=== PATIENT | female | born 1975 | race Caucasian/White ===

== ENCOUNTER 2021-09-19 11:12 | Emergency (ER) | payer BC ==
--- NOTE | 2021-09-19 11:50 | EDM.PDOC ---
ED HPI GENERAL MEDICAL PROBLEM - General Chief Complaint: General Stated Complaint: ?covid Time Seen by Provider: 09/19/21 11:40 Source of Information: Reports: Patient History Limitations: Reports: No Limitations - History of Present Illness INITIAL COMMENTS - FREE TEXT/NARRATIVE: Mrs. Brown is a 46 year old female that presents to the ED with flu-like symptoms. Began feeling SOB with cough today. States she has 2 family members that recently tested positive for influenza A. She has also had increased blood pressures for the past few weeks. Was started on 10 mg lisinopril last Wednesday. Reports generalized body aches. Denies fever. Onset: Today - Related Data Allergies Allergy/AdvReac Type Severity Reaction Status Date / Time acetaminophen Allergy Cannot Verified 01/09/17 13:12 [From Darvocet-N] Remember hydromorphone [From Dilaudid] Allergy Nausea Verified 01/09/17 13:12 morphine Allergy Nausea Verified 01/09/17 13:12 naproxen [From Naprosyn] Allergy Cannot Verified 01/09/17 13:12 Remember propoxyphene napsylate Allergy Cannot Verified 01/09/17 13:12 [From Darvocet-N] Remember Home Meds: Home Meds Omeprazole [Prilosec] 1 cap PO DAILY 08/15/14 [History] Oxymetazoline HCl [Afrin] 2 spray MAK BID PRN 08/15/14 [History] carBAMazepine [TEGretol] 400 mg PO BEDTIME 08/15/14 [History] ondansetron HCL [Zofran] 1 tab PO Q8H PRN 12/13/15 [History] Oseltamivir [Tamiflu] 75 mg PO DAILY #10 cap 09/19/21 [Rx] ED ROS GENERAL - Review of Systems Review Of Systems: Comprehensive ROS is negative, except as noted in HPI. ED EXAM, GENERAL - Physical Exam Exam: See Below Exam Limited By: No Limitations General Appearance: Alert, WD/WN, No Apparent Distress Ears: Normal External Exam Nose: Normal Inspection Throat/Mouth: Normal Voice, No Airway Compromise Head: Atraumatic, Normocephalic Neck: Normal Inspection, Supple, Non-Tender Respiratory/Chest: No Respiratory Distress, Lungs Clear, No Accessory Muscle Use Cardiovascular: Regular Rate, Rhythm, No Gallop, No Murmur, No Rub (Female) Exam: Deferred Rectal (Female) Exam: Deferred Neurological: Alert, Oriented, Normal Cognition Psychiatric: Normal Affect, Normal Mood Skin Exam: Warm, Dry, Intact Lymphatic: No Adenopathy Course - Orders/Labs/Meds Orders: Active Orders 24 hr Category Date Time Status Isolation [COMM] Routine Oth 09/19/21 11:14 Active Labs: Laboratory Tests 09/19/21 Range/Units 11:21 SARS CoV-2 RNA Rapid KASEY Negative (NEGATIVE) Departure - Departure Time of Disposition: 11:44 Disposition: Home, Self-Care 01 Clinical Impression: Viral respiratory illness Hypertension Qualifiers: Hypertension type: primary hypertension Qualified Code(s): I10 - Essential (primary) hypertension - Discharge Information *PRESCRIPTION DRUG MONITORING PROGRAM REVIEWED*: Not Applicable *COPY OF PRESCRIPTION DRUG MONITORING REPORT IN PATIENT EMILY: Not Applicable Instructions: Viral Illness, Adult Additional Instructions: 1. Take Tamiflu as prescribed for prophylactically for exposure to influenza. 2. Increase lisinopril to 20 mg. Monitor and document your blood pressures. 3. Follow-up with primary care provider in about 10 days with blood pressure readings to evaluate effectiveness. 4. Return if symptoms worsen or for any questions or concerns. - My Orders Last 24 Hours: My Active Orders 09/19/21 11:14 Isolation [COMM] Routine - Assessment/Plan Last 24 Hours: My Active Orders 09/19/21 11:14 Isolation [COMM] Routine
[2021-09-19 12:43] VITALS: BP 181/107; PULSE 112
== END 2021-09-19 12:15 | disposition home or self-care (01) ==
LOC: CC.ED 11:12
DX: B34.9 Viral infection, unspecified (principal); I10 Essential (primary) hypertension; Z88.5 Allergy status to narcotic agent; Z88.8 Allergy status to other drugs, medicaments and biological substances; Z79.899 Other long term (current) drug therapy; Z20.822 Contact with and (suspected) exposure to COVID-19
CPT/HCPCS: 87804; 99283; U0002

== ENCOUNTER → 2022-12-09 | Day surgery (SDC) | payer BC ==
[~2022-12-09] MED LIST: Lidocaine 1% w/EPINEPHrine 100 ML, Sodium Chloride 0.9% 900 ML, Sodium Bicarbonate 10 MEQ INJECT ONE
[2022-12-09 14:13] VITALS: BP 147/88; PULSE 82
[2022-12-09] MEDS: Lidocaine 1% 30 ML SDV INJECT ONE ×2 (14:28→15:00)
[2022-12-09] MEDS: Lidocaine 1% 5 ML VIAL INJECT ONE ×2 (14:28→15:00)
== END ==
LOC: CC.SDS 13:38
PROVIDERS: ATTEND Family Medicine
DX: I83.813 Varicose veins of bilateral lower extremities with pain (principal); I87.2 Venous insufficiency (chronic) (peripheral); F41.9 Anxiety disorder, unspecified; K21.9 Gastro-esophageal reflux disease without esophagitis; E78.5 Hyperlipidemia, unspecified; I10 Essential (primary) hypertension; M17.0 Bilateral primary osteoarthritis of knee; Z88.5 Allergy status to narcotic agent; Z88.8 Allergy status to other drugs, medicaments and biological substances; Z79.899 Other long term (current) drug therapy
CPT/HCPCS: A4216; J3490; J7030

== ENCOUNTER → 2023-06-11 | Day surgery (SDC) | payer BC ==
[~2023-06-11] MED LIST changes: +Ketamine 200 MG/20 ML MDV ONE; +Lactated Ringers 1,000 ML IV SCH; -Lidocaine 1% w/EPINEPHrine 100 ML, Sodium Chloride 0.9% 900 ML, Sodium Bicarbonate 10 MEQ INJECT ONE; +Lidocaine 2% 20 ML MDV ONE; +Propofol 200 MG/20 ML SDV ONE; +fentaNYL 50 MCG/ML SDV ONE
[2023-06-11 12:42] VITALS: BP 121/78; PULSE 80
== END ==
LOC: CC.SDS 09:05
PROVIDERS: ATTEND Family Medicine
DX: K21.9 Gastro-esophageal reflux disease without esophagitis (principal); K29.50 Unspecified chronic gastritis without bleeding; K52.9 Noninfective gastroenteritis and colitis, unspecified; Z88.5 Allergy status to narcotic agent; Z88.8 Allergy status to other drugs, medicaments and biological substances
CPT/HCPCS: 00813; 87081; J2704; J3010; J3490; J7120

== ENCOUNTER 2025-03-17 10:53 | Emergency (ER) | payer BC ==
[2025-03-17 11:50] VITALS: BP 146/87; PULSE 85
== END 2025-03-17 11:15 | disposition home or self-care (01) ==
LOC: CC.ED 10:53
DX: S01.01XA Laceration without foreign body of scalp, initial encounter (principal); E78.00 Pure hypercholesterolemia, unspecified; I10 Essential (primary) hypertension; Z88.5 Allergy status to narcotic agent; Z88.8 Allergy status to other drugs, medicaments and biological substances; Z79.899 Other long term (current) drug therapy; Z79.85 Long-term (current) use of injectable non-insulin antidiabetic drugs; W22.8XXA Striking against or struck by other objects, initial encounter
CPT/HCPCS: 12001; 99282; 99283